=== PATIENT | female | born 1995 | race Caucasian/White ===

== ENCOUNTER 2024-11-30 17:45 | Outpatient (RCR) | payer OTHER, SELFPAY ==
[2024-11-30 18:55] VITALS: BP 121/71; PULSE 110
== END 2025-02-28 23:59 | disposition home or self-care (01) ==
LOC: ANHOBOP 17:45
PROVIDERS: Visit Provider Obstetrics & Gynecology
DX: Z36.89 Encounter for other specified antenatal screening (principal)
CPT/HCPCS: 59025

== ENCOUNTER 2024-12-07 06:27 | Inpatient (IN) | payer OTHER, SELFPAY ==
[2024-12-07] VITALS (273 sets, daily range): BP systolic 91–151; BP diastolic 50–108; PULSE 79–132; TEMP 35.9–36.7; O2SAT 84–100
--- OUTSIDE RECORDS SUMMARY | 2024-12-07 06:33 | XMS_ITS | Clinical Summary ---
Author Organization [facility] Address [address] [place] [id number] Care Team Providers Care Manager Insurance Name Role Phone None, Provider MD Primary Care Provider Unavaila ble Allergies No known active allergies Medications No known medications Social History Tobacco Use Types Packs/Day Years Used Date Smoking Tobacco: Every Day Cigarettes Tobacco Cessation:Ready to Q uit: Not Asked; Counseling Given: Not Answered Alcohol Use Standard Drinks/Week Comments Not Currently 0 (1 standard drink = 0.6 oz pur e alcohol) Comments Unknown Sex and Gender Information Value Date Recorded Sex Assigned at Not on file 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 Gender Identity Not on file Sexual Orientation Not on file Last Filed Vital Signs Vital Sign Reading Time Taken Comments Blood Pressure 146/96 11/16/2023 7:49 AM CDT Pulse 110 11/16/2023 7:49 AM CDT Temperature 37 C (98.6 F) 11/16/2023 7:49 AM CDT Respiratory Rate 18 11/16/2023 7:49 AM CDT Oxygen Saturation 98% 11/16/2023 7:49 AM CDT Inhaled Oxygen Concentration - - Weight 56.7 kg (125 lb) 11/16/2023 7:49 AM CDT Height 165.1 cm (5' 5) 11/16/2023 7:49 AM CDT Body Mass Index 20.8 11/16/2023 7:49 AM CDT Plan of Treatment Health Maintenance Due Date Last Done Comments Cervical Cancer Screening Pap Smear (Age 30 to 64) Every 3 Years 1994 Annual Physical 1997 Hepatitis C 2012 Pneumococcal Vaccine: Pediatrics (0 to 5 Years) and At-Risk Patients (6 to 49 Years) (1 of 2 - PCV) 2013 HPV Vaccines (1 - 3-dose SCDM series) 2021 COVID-19 Vaccine (2023- season) 2024 Cervical Cancer Screening Pap with HPV Testing (Age 30 to 64) Every 5 Years 2024 Cervical Cancer Screening with HPV 2024 DTaP, Tdap and Td Vaccines (2 - Td or Tdap) 10/06/2028 10/06/2018, 10/29/1995, 04/21/1995, Additional history exists Hepatitis B Vaccines Completed 10/29/1995, 02/19/1995, 1994 Meningococcal B Vaccine Aged Out No l onger eligible based on patient's age to complete this topic Meningococcal Vaccine Aged Out No mark lis eligible based on patient's age to complete this topic RSV Immunizations Under 20 Months Aged Out No longer eligible based on patient's age to complete this topic [place] [address] [place] [address] Care Teams Manager Insurance Relationship Specialty Start Date End Date None, Provider, PCP - General UNKNOWN PHYSICIAN SPECIALTY 04/21/23
--- OUTSIDE RECORDS SUMMARY | 2024-12-07 06:33 | XMS_ITS | Clinical Summary ---
Author Organization [facility] Address [address] [address] Care Team Providers Care Endoscope Technician Name Role Phone Taylor Sheets MD Unavailable [phone] Mukesh Wyman MD Primary Care Provider [phone] Source Comments [facility],non-owned Affiliates and Associated Physician Practices is amultiple site organization consisting of ambulatory clinics and hospital sitesin [place], [place], [place] and [place]. This disclosure is being madepursuant to the Care Everywhere program and may not contain all information available regarding this patient. Last updated 18.[facility] [email or web address] Active Problems Patient Care Coordination No te Formatting of this note migh t be different from the original. Negative Sequential 05/4699 for T18 pg 2 in media Problem Noted Date Diagnosed Date Choroid plexus cyst of fetus 12/29/2014 Estimated Date of Delivery Comme nts Yes 12/13/2024 Based on Ultraso und Encounters Date Type Department Care Team Description 11/25/2024 12:09 PM CDT - 11/25/2024 11:59 PM CDT Hospital Encounter [facility] MATERNAL/ EVALUATION UNIT [address] [place] [address] Rivera Lopez MD Discharge Disposition: Home or Self Care 11/25/2024 Travel 11/14/2024 Telephone [facility] [address] [place] [id number] Denita Geller RN Appointment 11/14/2024 Telephone [facility] [address] [place] [address] Denita Geller RN Future Appointment (Called Keila at [facility] and updated her that I have reached out to [place] and now [facility] to see if we can get patient in as soon as possible as requested. ) 11/14/2024 Telephone [facility] MATERNAL/ EVALUATION UNIT [facility] [place] [address] Dorota Coyle RN Referral from Last 3 Months Immunizations Immunization Administration Dates Next Due DTaP VACCINE IM (6wk-6yrs) 11/25/1999,08/27/1999 ,02/19/1995,1994 HEP A PEDS 2 DOSE 01/23/2009,12/21/2007 HEP B VACCINE, PED/ADOL 08/27/1999,02/19/1995, HIB BOOSTER 02/19/1995,1994 Human Papilloma Virus Vaccine 01/26/2009, 008 MENINGOCOCAL MENINGITIS 12/21/2007 MMR 01/23/2005,08/27/1999 POLIO OPV 11/25/1999,08/27/1999,02/19/1995 ,1994 PPD 08/27/1999 TDAP (7yrs+) 12/21/2007 VARICELLA 12/21/2007,01/23/2005 Social History Tobacco Use Types Packs/Day Years Used Date Smoking Tobacco: Never Assessed Estimated Date of Delivery Comme nts Yes 12/13/2024 Based on Ultraso und Sex and Gender Information Value Date Recorded Sex Assigned at Not on file 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 Gender Identity Not on file Sexual Orientation Not on file Plan of Treatment Health Maintenance Due Date Last Done Comments HEPATITIS C SCREENING 10/13/2012 PNEUMOCOCCAL VACCINE (1 of 2 - PCV) 2013 PAP SMEAR 10/19/2015 DTAP/TDAP/TD VACCINES (5 - Td or Tdap) 12/20/2017 12/21/2007, 11/25/1999, 08/27/1999, Additional history exists COVID-19 VACCINE ( season) 2024 DEPRESSION SCREENING 05/11/2024 OB-TDAP CURRENT 09/13/2024 10/06/2018, 04/2008 OB-RHOGAM INJECTION 09/20/2024 INFLUENZA VACCINE (#1) 2025 ZOSTER VACCINE (1 of 2) 2044 HIB VACCINE Aged Out 02/19/1995, 1994 No lo nger eligible based on patient's age to complete this topic HEPATITIS B VACCINE Completed 08/27/1999, 02/19/1995, 1994 MENINGOCOCCAL GROUPS A/C/Y/W VACCINE Aged Out 12/21/2007 No longer eligible based on patient's age to complete this topic HPV VACCINE Completed 01/26/2009, 12/21/2007 HIV SCREENING Completed 10/06/2024, 09/19/2024 OB-ONE HOUR GLUCOSE Completed 10/06/2024 OB-GROUP B STREP SCREEN Completed 11/18/2024 MENINGOCOCCAL (Group B) VACCINE SHARED DECISION-MAKING Aged Out No longer eligible based on patient's age to complete this topic Respiratory Syncytial Virus (RSV) Vaccine Pt: or over 60 yrs (No Doses Required) Completed Procedures Procedure Name Priority Date/Time Associated Diagnosis Comments SONOGRAM - COMPLETE Routine 11/25/2024 1 2:55 PM CDT from Last 3 Months Results * Sonogram - Complete (11/25/2024 12:55 PM CDT) Linked Results Indication ======== anatomy evaluation Abnormal finding on previous ultrasound 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 Para 2 1. live 2016. Gest. age 40 w + 0 d. Sex of child: male. Details: Vaginal delivery, 9lb 12 oz 2. live 2018. Gest. age 39 w + 0 d. Sex of child: male. Details: Vaginal delivery, 6 lb Lab Tests Test Date Result NIPT Declined Maternal Assessment Physical Exam Height 165 cm, 5 ft 5 in. Weight 101 kg, 223 lb. Initial weight 68 kg, 150 lb. BMI 37.11 kg/m . Initial BMI 24.96 kg/m . Weight gain 33 kg, 73 lb Method ====== Transabdominal ultrasound. View: Suboptimal view: limited by late gestational age ========= Garces . Number of fetuses: 1 Dating ====== Date Details Gest. age MAMTA Previous U/S 08/31/2024 GA, GA 25 w + 1 d 37 w + 3 d 12/13/2024 U/S 11/25/2024 based upon AC, BPD, Femur, HC 39 w + 5 d 11/27/2024 Assigned dating based on ultrasound (GA), selected on 11/25/2024 37 w + 3 d 12/13/2024 General Evaluation Cardiac activity present. FHR 133 bpm. Presentation: cephalic Placenta: Placental site: posterior Umbilical cord: Cord vessels: 3 vessel cord. Insertion site: normal insertion Amniotic fluid: Amount of AF: polyhydramnios. MVP 7.7 cm. MAE 29.4 cm. Q1 7.3 cm, Q2 7.4 cm, Q3 7.7 cm, Q4 7.0 cm Biometry BPD 91.9 mm 37w 2d 66% Hadlock HC 354.1 mm 41w 3d 97% Hadlock Cerebellum tr 53.1 mm AC 374.1 mm 41w 2d >99% Hadlock Femur 76.2 mm 39w 0d 85% Hadlock Humerus 69.5 mm -/- >99% Roula HC / AC 0.95 -/- Hadlock Weight Calculation: EFW 4,052 g 99% Hadlock EFW (lb,oz) 8 lb 15 oz EFW by Hadlock ([id number]) Head / Face / Neck Biometry: CM 8.6 mm 77% Nicolaides LGA Growth Overview Exam date GA BPD (mm) HC (mm) AC (mm) FL (mm) HL (mm) EFW (g) 11/25/2024 37w 3d 91.9 66% 354.1 97% 374.1 >99% 76.2 85% 69.5 >99% 4052 99% Anatomy The following structures appear normal: Head / Neck Cranium. Lateral ventricles. Choroid plexus. Midline falx. Cavum septi pellucidi. Cerebellum. Cisterna magna. Thalami. Face Lips. Profile. Nose. Nasal bone. Orbits. Heart / Thorax 4-chamber view. RVOT view. LVOT view. 3-vessel view. 8-bxpczo-porrnoi view. Situs. Aortic arch view. Bicaval view. Ductal arch view. Great vessels. Right lung. Left lung. Diaphragm. Abdomen Cord insertion. Stomach. Kidneys. Bladder. Bowel. Genitals. Extremities / Skeleton Arms. Legs. Left foot. The following structures could not be adequately visualized: Spine Cervical spine. Thoracic spine. Lumbar spine. Sacral spine. Extremities / Skeleton Hands. Right foot. Maternal Structures Right Ovary Normal Cyst(s) Size 28.8 mm x 23.7 mm x 23.1 mm. Mean 25.2 mm. Vol 8.256 cm . Simple cyst Left Ovary Normal Cyst(s) Size 41.1 mm x 40.0 mm x 39.6 mm. Mean 40.2 mm. Vol 34.088 cm . Simple cyst Impression ========= Single, live, intrauterine at 37w3d LGA size for reported MAMTA Amniotic fluid volume: mild polyhydramnios No major malformations were seen within the limitations of ultrasound Likely persistent right umbilical vein with prominent confluence of portal vein and ductus venosus -no turbulent flow noted at the confluence; does not appear to be a varix Reassuring 8 point biophysical profile Comment ======== ultrasound alone cannot detect all structural, genetic, or functional , placental, or maternal abnormalities Discussed with patient and partner the likely presence of a persistent right umbilical vein. This is generally considered to be a normal variant but does slightly increase the risk of other cardiovascular abnormalities; cardiac anatomy within normal limits today. No further ultrasound follow-up recommended. Follow-up ======== Follow-up ultrasound as clinically indicated Coding ====== Diagnoses O99.513, J45.909: Diseases of the respiratory system complicating , Asthma O09.33: Supervision of with insufficient care O28.3: Abnormal ultrasonic finding on screening of mother Z36.3: Encounter for screening for malformations Procedures 68885: US Preg Uterus Detailed 52740: Biophysical [facility] Anatomical Region Laterality Modality Other 11/25/2024 12:5 5 PM CDT us Ordering Provider Unlisted MD YANG ORDERABLES Ed ited Result - Final from Last 3 Months Insurance [facility] Care Teams Endoscope Technician Relationship Specialty Start Date End Date Taylor Sheets MD PCP - Pediatrics 02/20/09 Mukesh Wyman MD [address] [place] [address] PCP - General Surgery 01/05/15
--- NOTE | 2024-12-07 07:32 | LDADM ---
This patient, Venessa Vides, was admitted to Labor/Delivery/Recovery 109 on 12/07/24 at 06:27. Plans for labor, pain management and were discussed with patient. Patient/family oriented to hospital policies and general routines including ID bracelet, bed and alarms, visiting hours, pain management, procedures, bathroom and other care routines, personal items, smoking policy, room service/diet and guest tray routines, security routines, and visiting hours. Patient/Family are encouraged to report perceived risks to care and to ask questions if they do not understand what they are told or what they should do. See OBIX for further documentation.
[2024-12-07 07:54] LABS: Hematocrit 30.2 % (37.0-47.0); Hemoglobin 10.0 g/dL (12.0-15.0); Immature Granulocyte Percent A 2.0 % (0-0.5); Lymphocytes Absolute Auto 1.60 K/mm3 (0.9-3.2); Mean Corpuscular HGB Conc 33.1 g/dl (32-36); Mean Corpuscular Hemoglobin 28.2 pg (26-34); Mean Corpuscular Volume 85.3 fl (80-100); Nucleated Red Blood Cells Absolute Auto 0.000 K/mm3 (0.0-0.012); Nucleated Red Blood Cells Perc 0.0 % (0.0-0.2); Platelet Count Result 151 k/mm3 (150-375); Red Blood Count 3.54 M/mm3 (4.2-5.4); White Blood Count 9.5 K/mm3 (4.5-10.0)
--- NOTE | 2024-12-07 07:58 | WPDOBADMIT ---
Obstetrics - Admit Note Admission Note: record reviewed. No pertinent additions to the history and/or any subsequent changes in the physical findings that are not consistent with the expected course of the were found. Additions to the history and/or subsequent changes in the physical findings follow. Admit IOL, LGA, polyhydramnios, ve / SOFT
[2024-12-07 09:37] LABS: Syphilis IgG/IgM Antibody Non-Reactive (Nonreactive)
[2024-12-07] MEDS: OXYTOCIN 30 UNITS/NS 500 ML 30 UNITS/500 ML BAG IV CONT (11:50)
[2024-12-07] MEDS: LACTATED RINGERS 1,000 ML 125 ML IV CONT ×3 (11:50→19:20)
--- NOTE | 2024-12-07 16:27 | P.PNAN_ITS ---
Anes - Eval Pre Procedure Procedure: Labor Epidural Date/Time: 12/07/24 16:27 Surgeon: Avelino Preop Diagnosis: Labor Pain Pre Op Diagnosis: IOL Patient Data Age: 29 Gender: F Height: Weight: Last Vital Signs Temp 36.3 C L 12/07/24 14:00 Pulse 102 H 12/07/24 16:15 BP 114/98 H 12/07/24 16:15 Pulse Ox 100 12/07/24 16:22 O2 Del Method Room Air 12/07/24 07:30 Allergies Allergy/AdvReac Type Severity Reaction Status Date / Time No Known Allergies Allergy Unverified 08/18/17 14:50 Home Medications ?Medication ?Instructions ?Recorded ?Confirmed ?Type vit no.95-ferrous 1 tablet PO DAILY 11/26/24 11/26/24 History fumarate 28 mg-folic acid 800 mcg tablet () Laboratory Tests 12/07/24 06:47 WBC 9.5 K/mm3 (4.5-10.0) RBC 3.54 L M/mm3 (4.2-5.4) Hgb 10.0 L g/dL (12.0-15.0) Hct 30.2 L % (37.0-47.0) MCV 85.3 fl (80-100) MCH 28.2 pg (26-34) MCHC 33.1 g/dl (32-36) RDW 13.7 % (11.5-14.5) Plt Count 151 k/mm3 (150-375) MPV 12.3 H fl (7.4-10.4) Immature Gran % (Auto) 2.0 H % (0-0.5) Neut % (Auto) 71.1 % (45.5-73.1) Lymph % (Auto) 16.8 L % (18.3-44.2) [place] % (Auto) 8.8 H % (2.6-8.5) Eos % (Auto) 0.9 % (0-4.4) Baso % (Auto) 0.4 % (0.2-1.2) Lymph # (Auto) 1.60 K/mm3 (0.9-3.2) [place] # (Auto) 0.8 H K/mm3 (0.1-0.6) Eos # (Auto) 0.1 K/mm3 (0-0.3) Baso # (Auto) 0.0 K/mm3 (0.0-0.1) Abs Immat Gran (auto) 0.19 H K/mm3 (0.00-0.031) Absolute Neuts (auto) 6.7 K/mm3 (1.3-6.7) Absolute Nucleated RBC 0.000 K/mm3 (0.0-0.012) Nucleated RBC % 0.0 % (0.0-0.2) Syphilis IgG/IgM Ab Non-reactive (Nonreactive) Blood Type O Positive Antibody Screen Negative : gestational age (MAMTA 12/16/24 ) Patient hx anesthesia problems: none Family hx anesthesia problems: none Results Review: All pre-operative results and documents have been reviewed as part of the pre- operative evaluation. [facility] Social History Social History Smoking status: Current every day smoker Tobacco type: cigarettes Substance use: current Last use: Patient stopped in the last month. Lack of Transportation: YES Lack of Food: Never True Current Housing: I Have Housing Concerned About Future Housing: No Difficulty Paying Gas/Electric Bills: No Difficulty Paying for Meds: No Currently Unemployed: YES Education: High School Diploma/GED Difficulty w/ Childcare or Family Care: No Spiritual care concerns: No Exam Day of Procedure 12/07/24 16:27 Patient weight: normal and super morbidly obese Heart: regular rate and rhythm Lungs: normal air movement Airway: Mallampati scale class II Neurological: alert and oriented
--- NOTE | 2024-12-07 17:46 | PM.OBPNLAB ---
Pain Control Date/time seen: 12/07/24 17:46 Comments: SVE 2/-3 IUPC placed anticipate vaginal delivery
[2024-12-07] MEDS: ONDANSETRON INJ 4 MG/2 ML VIAL IV PUSH (23:53)
[2024-12-08] VITALS (177 sets, daily range): BP systolic 82–151; BP diastolic 50–116; PULSE 80–133; RESP 16–18; TEMP 36.2–37.1; O2SAT 93–100
[2024-12-08] MEDS: AMPICILLIN SODIUM 2 GM in SODIUM CHLORIDE 0.9% IV 100 ML 200 ML IVPB (06:51)
[2024-12-08] MEDS: LACTATED RINGERS 1,000 ML 125 ML IV CONT (07:12)
[2024-12-08] MEDS: OXYTOCIN 10 UNITS/ML VIAL 20 UNITS IM (08:30)
[2024-12-08] MEDS: OXYTOCIN 30 UNITS/NS 500 ML 30 UNITS/500 ML BAG 125 UNITS IV CONT (08:41)
--- NOTE | 2024-12-08 08:42 | PM.OBPRVD ---
OB - Vaginal Delivery Note Procedure Delivery date: 12/08/24 Events: Polyhydramnios and Other (LGA) Induction method: AROM, Per Misoprostol Protocol and Per Pitocin Protocol Delivery monitor: External FHT and Internal Uterine Route of delivery: Episiotomy description: None Laceration Description: None Specimen: No Quantitative Blood Loss (ml): 175 Anesthesia type: Epidural Disposition: Floor Complications: No immediate complications Baby Date of : 12/08/24 Time of : 08:26 Gestational Age by Date: 39 gender: Male presentation: vertex position: Left Occiput Anterior Placenta delivery description: Expressed Cord Vessel Description: 3 Vessels, Clamped/Cut and Delayed Cord Clamping Narrative: mother and baby in stable condition
[2024-12-08] MEDS: IBUPROFEN 600 MG TABLET PO ×2 (10:29→20:12)
--- NOTE | 2024-12-08 12:25 | OBPPTRN ---
Patient transferred to post room #290 via wheelchair. Support person present. Oriented to unit, room, information board, rooming in, admission packet and security measures. Patient verbalizes understanding.
[2024-12-08] MEDS: ACETAMINOPHEN 325 MG TABLET 650 MG PO ×2 (13:45→20:12)
[2024-12-08] MEDS: DOCUSATE SODIUM 100 MG CAPSULE PO (13:45)
[2024-12-08] MEDS: MULTIVIT/MIN/PREN/FOL AC/IRON TABLET 1 TAB PO (13:45)
[2024-12-08] MEDS: NICOTINE (*PBKC) 14 MG PATCH 1 PATCH TRANSDERM (13:46)
--- NOTE | 2024-12-08 14:54 | PC.NURSE ---
3846- spoke to Holley Payan from [facility] regarding patient and baby. Phone number
--- NOTE | 2024-12-08 14:55 | PC.NURSE ---
8952-Spoke to Redd Wright from [facility] regarding patient and baby. Phone number
--- NOTE | 2024-12-08 14:57 | PC.NURSE ---
0906- spoke to Allison Benites from [facility] hotline regarding pt delivery. Number provided by Allison [phone]
--- NOTE | 2024-12-08 17:19 | PC.NURSE ---
1710. Introductions were made, then consulted with patient to assess needs related to . Mom states infant has been latching well so far with no pain to her. Discussed with mother her plans to feed her infant and the experience so far. Encouraged mother to express any questions or concerns she has regarding feedings. Advised her to call out for a latch check or if she needs assistance waking or positioning baby. Reviewed the blue feeding worksheet for required output and feeding at least 8-12 times every 24 hours. Resources provided for inpatient and outpatient services with the feeding sheet, mom/baby guide, and name/number written on the communication board. Mother voiced understanding of information and will call if there is a request for assistance. Reported to the Primary RN?
[2024-12-09 05:20] VITALS: BP 120/65; PULSE 82; RESP 18; TEMP 36.6; O2SAT 100
[2024-12-09] MEDS: IBUPROFEN 600 MG TABLET PO ×2 (05:20→15:05)
[2024-12-09] MEDS: ACETAMINOPHEN 325 MG TABLET 650 MG PO ×2 (05:20→15:03)
[2024-12-09 05:28] LABS: Hematocrit 27.0 % (37.0-47.0); Hemoglobin 8.4 g/dL (12.0-15.0)
--- NOTE | 2024-12-09 07:21 | P.PNOB_ITS ---
OB - PN: Subj Subjective Date/time seen: 12/09/24 07:21 Interval history: PP DAY 1 doing well no complaints OB - PN: Obj Data Labs 12/09/24 04:22 Labs: Laboratory Results - last 24 hr 12/09/24 04:22 Hgb 8.4 L Hct 27.0 L OB - PN A/P Plan day: 1 Plan: routine care Time Spent With Patient Time: Total time spent is greater than 50% in coordination of care (as documented) at patient's floor/unit and/or counseling patient: Review of Systems 2 Review of Systems: All systems reviewed & are unremarkable except as noted in HPI and below Exam 2 Const: General: cooperative and healthy appearing Chest: Chest palpation & inspection: normal inspection of the chest Resp: Effort & Inspection: normal respiratory effort Skin: General skin exam: normal color
[2024-12-09 08:55] VITALS: BP 121/75; PULSE 86; RESP 18; TEMP 36.7; O2SAT 98
[2024-12-09] MEDS: MULTIVIT/MIN/PREN/FOL AC/IRON TABLET 1 TAB PO (09:32)
[2024-12-09] MEDS: DOCUSATE SODIUM 100 MG CAPSULE PO ×2 (09:32→15:05)
--- NOTE | 2024-12-09 16:05 | PCCCNOTE ---
Addendum entered by NESHA Lynch 12/16/24 09:10: Umbilical cord drug screen results faxed to Redd at [facility]: [phone]. Original Note: Recvd consult due to pt. not having custody of her other two children, since September 2024. This was caused due to pt. being noncompliant with childrens' medical appts, and pt. not managing the youngest child's diabetes dx. Pt. is current with DCFS worker Redd of [facility], . DCFS worker, Holley, of [facility] [phone] came to pt's bedside this morning 12/09. Holley provided her assessment findings to Redd. Spoke with Redd who reports due to baby not having any withdrawal symptoms and no Umbilical Cord drug screen results available yet, that pt. is allowed to discharge with baby. Redd reports will follow up with baby's deputy clerk of court that pt. and FOB chose - Danish Castro in [facility] (appt 12/13) [phone]. Redd reports if she receives notice from [employer] [facility] [employer] that baby misses the appt, or the umbilical cord screen comes back positive, that's when DCFS will be able to further an investigation. Redd confirms will keep checking in with pt. and FOB upon discharge. SHAKIR Pope aware of these updates. SHAKIR Pope reports likely discharge tomorrow 12/10; Redd aware and agreeable. [facility] No further needs at this time.
--- NOTE | 2024-12-09 19:11 | PC.NURSE ---
DCFS here to see patient. Care coordination notified.
[2024-12-09 20:25] VITALS: BP 123/69; PULSE 95; RESP 18; TEMP 36.7; O2SAT 99
[2024-12-10] MEDS: IBUPROFEN 600 MG TABLET PO ×2 (00:44→08:48)
[2024-12-10 08:15] VITALS: BP 121/77; PULSE 84; RESP 20; TEMP 36.8; O2SAT 99
[2024-12-10] MEDS: MULTIVIT/MIN/PREN/FOL AC/IRON TABLET 1 TAB PO (08:48)
[2024-12-10] MEDS: DOCUSATE SODIUM 100 MG CAPSULE PO (08:48)
--- NOTE | 2024-12-10 09:38 | PC.NURSE ---
Patient viewed the discharge video Mother & Baby Care, The First Two Weeks. Patient was given the opportunity and encouraged to ask questions. Patient verbalized understanding of information shared and has been given the mother/baby guide for home reference.
--- NOTE | 2024-12-10 11:54 | WPDANLDPN2 ---
Anes-Prog Note L&D Date/Time: 12/10/24 11:54 Comfortable throughout: labor and delivery Neuraxial method: epidural Epidural/Spinal procedure site: clean & non-tender Neuro status: Neuro function grossly intact. Cardiovascular status: normal Respiratory status: normal Airway patency: baseline Mental status: baseline Post-Op hydration status: normal Vital Signs: Last Vital Signs Temp 98.3 F 12/10/24 08:15 Pulse 84 12/10/24 08:15 Resp 20 12/10/24 08:15 BP 121/77 12/10/24 08:15 Pulse Ox 99 12/10/24 08:15 O2 Del Method Room Air 12/09/24 19:23 Pain score (VAS): 0 Post-procedural complaints: none Patient feedback: Patient satisfied with anesthetic care. Other findings: pt off floor, awaiting discharge. RN reports pt doing well. no complaints
--- NOTE | 2024-12-10 11:59 | P.PNOB_ITS ---
OB - PN: Subj Subjective Date/time seen: 12/10/24 11:59 Interval history: PP DAY 1 doing well no complaints Patient comments: no complaints, pain well controlled and tolerating diet OB - PN: Obj Data Labs 12/09/24 04:22 OB - PN A/P Plan day: 2 Plan: routine care and discharge home Time Spent With Patient Time: Total time spent is greater than 50% in coordination of care (as documented) at patient's floor/unit and/or counseling patient: Exam 2 Const: General: comfortable and no acute distress Resp: Effort & Inspection: normal respiratory effort Auscultation: no rales, no rhonchi and no wheezes Cardio: Rate: regular rate Heart sounds: no click, no murmurs and no rubs GI: GI Palp: Yes Soft to palpation and No Tenderness to palpation present (GI) Auscultation: normal bowel sounds Extrem: General: normal to inspection, no pedal edema and no calf tenderness
--- NOTE | 2024-12-10 11:59 | PM.OBDSVD ---
DS: Admitting Diagnosis Discharge Date 12/10/2024 Admitting Diagnosis Term DS: Discharge Diagnosis Discharge Diagnosis (1) Term delivered: Code(s): O80 - Encounter for full-term uncomplicated delivery Status: Acute OB - DS: Summary OB Procedures : None OB Procedures Intrapartum: Spontaneous Vag Delivery OB Procedures: : None Peripartum Data Laceration Description: None Episiotomy description: None Time Spent with Patient Time attestation: Total time spent providing and/or coordinating discharge services: Discharge Plan Discharge Discharging Clinician: Ash You Patient Disposition: Home Activity: pelvic rest Diet: regular Patient Instructions: Antibiotic Form Patient Language: Faroese Stand Alone Forms: General Discharge Information Follow-up/Referrals: Ash You MD [Physician] - Discharge Medications: No Action PNV no.95-ferrous fumarate-FA [] 28 mg iron- 800 mcg tablet 1 tablet PO DAILY Date of admission: 12/07/24 06:27 Primary Care Provider: UNKNOWN,DOCTOR Admitting Provider: Ash You Attending physician on admission: Ash You Condition: Stable
[2024-12-12 10:42] VITALS: BP 138/87; PULSE 84; RESP 18; TEMP 36.6; O2SAT 99
== END 2024-12-10 14:00 | disposition home or self-care (01) | DRG 560 ==
LOC: ANHLDR 06:31 → ANHOB2 12-08 12:35
PROVIDERS: Advanced Practice Midwife; Admitting Provider Obstetrics & Gynecology; Visit Provider Obstetrics & Gynecology
DX: O36.63X0 Maternal care for excessive fetal growth, third trimester, not applicable or unspecified (principal); O40.3XX0 Polyhydramnios, third trimester, not applicable or unspecified; O32.6XX0 Maternal care for compound presentation, not applicable or unspecified; Z3A.39 39 weeks gestation of pregnancy; Z37.0 Single live birth
CPT/HCPCS: 36415; 85014; 85018; 85025; 86593; 86850; 86900; 86901; A9270; J0290; J2405; J2590; J2795; J7120